=== PATIENT | male | born 1950 | race Caucasian/White ===

== ENCOUNTER → 2016-09-17 | Outpatient (CLI) | payer OTHER ==
[~2016-09-17] VITALS: Ht 177.8 cm; Wt 122.9 kg
[~2016-09-17] MED LIST: ALBUTEROL INH INH; ALLEGRA-D 24 H1 EACH PO; AMBIENCR PO; ASMANEX0.135 G1 IH; ASPIRIN EC81 M1 PO; CARDIZEM CD180 MG PO; CARDIZEM PO; COMBIVENT INH; COUMADIN 5 MG TA5 M1 OR; COUMADIN 5 MG TA5 M1 PO; CRESTOR40 MG PO; CYMBALTA60 MG PO; DIGOXIN125 MCG PO; DOCUSATE SODIU100 MG PO; DOXYCYCLINE HY100 MG PO; FERROUS GLUCON240 MG PO; FERROUS GLUCON325 M4 PO; FUROSEMIDE 20 M20 MG PO; FUROSEMIDE 40 M40 MG; GLUCOPHAGE500 MG PO; GLUCOSAMINE &1 EACH PO; GLUCOTROL10 MG PO; GLYBURIDE 5 MG T5 M1 PO; GNP GLUCOSAMIN PO; HYDROCODON-ACE1 EACH PO; HYDROXYZINE HCL25 M1 PO; HYTRIN 5 M5 MG/1 CAP PO; HYTRIN10 MG PO; KEFLEX500 MG PO; LISINOPRIL10 MG PO; LISINOPRIL40 MG PO; LORAZEPAM 1 MG T1 M1 PO; METFORMIN HCL500 MG PO; METOCLOPRAMIDE10 MG PO; MOMETASONE FUROATE INH; NEURONTIN 300300 M1 PO; OMEGA 3-6-9 CO1 EACH PO; OMEPRAZOLE 20 M20 M1 PO; OXYBUTYNIN 5 MG5 M1 PO; OXYCODONE-ACET1 EAC2 PO; OXYCONTIN PO; OXYCONTIN20 M1 PO; OXYCONTIN20 MG PO; OXYTROL3.9 MG/PAT TRANSDERM; Oxycontin; Oxycontin PO; PACERONE 200 M200 M1 PO; PERCOCET 10-321 EACH PO; PLAVIX 75 MG TA75 M1 PO; PLAVIX 75 MG TA75 MG PO; PREPARATION H26 GM; PRILOSEC 20 MG20 MG PO; PRINIVIL40 MG PO; PROSCAR 5MG TABL5 M1 PO; SANCTURA XR60 M2 PO; SILVADENE20 GM TP; SONATA10 MG PO; SPIRIVA INH; SUPER OMEGA-31000 MG PO; SYMBICORT160 MCG/4. INH; TOPROL XL25 MG PO; TRIAM60; TYLENOL325 MG PO; UNICOMPLEX M TA1 TA1 PO; VESICARE10 M1 PO; VITAMIN B COMP1 EAC7 PO; VITAMIN D32000 UNI1 PO; VITAMIN D32000 UNIT; VITAMINC500 PO; ZANTAC 150MG T150 M1 PO; ZINC CHELATE50 MG PO; ZYRTEC 10 MG TA10 MG PO; [UNRECOGNIZED DRUG - REMARK]; oxycontin PO
--- NOTE | ~2016-09-17 | HPC ---
[facility] [place] [address] PAIN MANAGEMENT CONSULTATION Name: RAHEEM SANDOVAL [facility] [id number] Admission: 09/17/16 Attend Phys: Raheem Gilbert MD Discharge: Date of : 46 Report #: [id number] THIS REPORT FOR: //name// CC: Jose Stoevrlaura Mariontree DATE OF SERVICE: 09/17/2016 Followup visit for chronic intractable back pain, now with radiculopathy, right hip, into the foot and ankle. The patient returns to pain clinic today in followup. He is in his wheelchair. He is continuing to lose weight down a total of 30 pounds. He is getting around a little bit better, except for increasing onset of radicular pain into the right leg. Pain begins in the hip, follows the lateral aspect of the leg down through the thigh into the calf and into the L5-S1 distribution. He describes his pain as severe, 10/10 at times with his ability to get up and ambulate the short distances that he does outside of his wheelchair. He continues to deal with COPD and sleep apnea using a CPAP at night with oxygen. He has type 2 diabetes, gastroesophageal reflux disease, morbid obesity and peripheral vasculopathy. He has been treated with stents for femoral artery stenosis on the right. He has, in addition, multi-joint arthropathies and arthritis including pain in nearly every joint of his body. He has had knee injections on frequent occasions and arthroscopies. He has no artificial joints to this stage, mostly because he is not a candidate due to his poor health. CURRENT MEDICATIONS: Oxycodone 10/325 three times daily, gabapentin 300 mg t.i.d. and OxyContin 20 mg b.i.d. (Total MME is 90 mg per day). All other medications are listed on the electronic medical record and confirmed and reconciled. ALLERGIES: None. PHYSICAL EXAMINATION: GENERAL: This is a very pleasant gentleman, alert and oriented. He is in a wheelchair, but he is able to move from sitting to standing position, in fact, get up and on to the bed, without significant difficulty. He is morbidly obese with a BMI of 38.9. VITAL SIGNS: Blood pressure is 147/71, heart rate is 72, respirations are 22 and room air oxygen saturation is 99%. HEENT: Normal. CHEST: Reveals decreased breath sounds bilaterally throughout. CARDIAC: Rhythm is irregular. ABDOMEN: Examination of the abdomen is soft. [address] [address] PAIN MANAGEMENT CONSULTATION Name: RAHEEM SANDOVAL Room #: REG [facility]#: [id number] Admission: 09/17/16 Attend Phys: Raheem Gilbert MD Discharge: Date of : 46 Report #: [id number] EXTREMITIES: Examination of the extremities reveals peripheral edema and multiple bruises in the upper and lower extremities. Straight leg raising is markedly positive on the right, which reproduces an L5-S1 discomfort. He has discomfort and tenderness in multiple joints including bilateral knees, which have crepitus and some slight effusion as well as shoulders. IMPRESSION: 1. Chronic intractable back pain with spondylosis and lumbar radiculopathy. 2. Osteoarthritis including knees, hips and shoulders. 3. Chronic obstructive pulmonary disease. 4. Hypertension. 5. Morbid obesity with continuing weight loss. 6. Type 2 diabetes. 7. Management of high-risk medication. PLAN: I renewed his medication under the terms of our opioid agreement with instructions on safeguarding all medications. Urine drug screen was reviewed from 6 months ago and this demonstrated no surprises in his medication, only medications present were those provided through our clinic. PROCEDURE: Epidural steroid injection, right paramedian, L5-S1, under fluoroscopic guidance. PROCEDURE NOTE: He was taken to the fluoroscopic suite for treatment, placed prone and skin prepped with ChloraPrep. Skin anesthetized over the L5-S1 interspace. Using triplanar fluoroscopic views, I advanced the needle into the epidural space with loss of resistance technique. There was no blood or CSF aspirated. A 1 mL of Omnipaque was injected with good spread of dye observed in the epidural space. This was then followed by 3 mL of 0.5% lidocaine mixed with 80 mg of triamcinolone. He tolerated the procedure well and was observed for 45 minutes and discharged. Followup visit is planned in the pain clinic in 3 months for medications, sooner if necessary. <ELECTRONICALLY SIGNED> By: Raheem Gilbert MD 09/18/16 1329 1311 1420 Raheem Gilbert MD /nt
[2016-09-17 09:39] LABS: PROTIME 10.6 Seconds (9.3-11.4)
[2016-09-17 10:01] VITALS: BP 120/64
== END | disposition home or self-care (01) ==
LOC: PAIN 07:07
PROVIDERS: Anesthesiology Pain Medicine
DX: M47.896 Other spondylosis, lumbar region (principal); G89.29 Other chronic pain; M19.90 Unspecified osteoarthritis, unspecified site; I10 Essential (primary) hypertension; E66.01 Morbid (severe) obesity due to excess calories; E11.9 Type 2 diabetes mellitus without complications; J44.9 Chronic obstructive pulmonary disease, unspecified; F17.210 Nicotine dependence, cigarettes, uncomplicated; Z68.38 Body mass index [BMI] 38.0-38.9, adult

== ENCOUNTER 2016-10-08 20:24 | Inpatient (IN) | payer OTHER ==
[~2016-10-08] VITALS: Ht 177.8 cm; Wt 121.9 kg
--- NOTE | ~2016-10-08 | 2DMMODE ---
[facility] [place] [address] 2 D/M-MODE ECHOCARDIOGRAM Name: RAHEEM SANDOVAL Room #: 426-P [facility] IN .R.#: [id number] Admission: 10/08/16 Attend Phys: Hanna Smith MD Discharge: Date of : 46 Date of Service: 10/09/16 1018 Report #: [id number] THIS REPORT FOR: //name// Transthoracic Echocardiography Ordering physician: Thuy Encarnacion Stephanie B. Newbanks, physician: Thuy Wetzel Deputy Sheriff K9 Handler: Tamara Seo Indications/History: Elevated BNP, rule out heart failure. Hx: Afib HTN, HLP, COPD, DM, PVD BP: 123 / HR: 85bpm Height: 70in Weight: 269.4lb 71 Study data: M-mode, complete 2D, complete spectral Doppler, and color Doppler. Location: Bedside. Routine. Image quality was fair. The study was technically limited due to body habitus. The parasternal window was low, thus no M-mode measurements were recorded. 2D measurements Normal Normal LVID ED 55.2mm 36-57 IVS ED 12.6mm 6-11 LVID ES 37.4mm 23-40 LVPW ED 13.1mm 6-11 LA volume 20ml/m2 16-28 AoRoot diam 37.1mm 21-37 index ED LVOT diameter 18-23 Findings: Left ventricle: The cavity size was normal. Wall thickness was increased in a pattern of mild LVH. Systolic function was normal. The estimated ejection fraction was in the range of 55% to 60%. Wall motion was normal. Right ventricle: Not well visualized but appears normal in size and function. Right atrium: The atrium was normal in size. Left atrium: The atrium was normal in size. Volume index: 20ml/m2 (S). [facility] [address] [place] [address] 2 D/M-MODE ECHOCARDIOGRAM Name: RAHEEM SANDOVAL Room #: 426-P [facility] IN Renee#: [id number] Admission: 10/08/16 Attend Phys: Hanna Smith MD Discharge: Date of : 46 Date of Service: 10/09/16 1018 Report #: [id number] Aortic valve: Poorly visualized. Mildly sclerotic leaflets. Doppler: There was no stenosis. No regurgitation. Peak velocity: 171.5cm/s (S). Peak gradient: 11.8mm Hg (S). Mitral valve: Moderately calcified annulus. Doppler: There was no evidence for stenosis. Mild regurgitation. Peak E-wave velocity: 66.9cm/s. Peak A-wave velocity: 92.1cm/s. Tricuspid valve: Structurally normal valve. Doppler: There was no evidence for stenosis. Trivial regurgitation. Regurgitant peak velocity: 194.8cm/s. Peak RV-RA gradient: 15mm Hg (S). Pulmonic valve: Poorly visualized. Pericardium: Apericardial fat pad was noted. There was no pericardial effusion. Aorta: Aortic root: The aortic root was normal in size. Pulmonary artery: Pressure could not be reliably determined due to minimal or absent tricuspid insufficiency jet, but pulmonary hypertension was not suggested. Diastolic function: Doppler parameters are consistent with abnormal left ventricular relaxation (grade 1 diastolic dysfunction). Systemic veins: Inferior vena cava: The vessel was normal in size; the respirophasic diameter changes were in the normal range (= 50%). Conclusions Limited echo study. 1. Left ventricle: Systolic function was normal. The estimated ejection fraction was in the range of 55% to 60%. Wall motion was normal. Doppler parameters are consistent with abnormal left ventricular relaxation (grade 1 diastolic dysfunction). 2. Aortic valve: Mildly sclerotic leaflets. There was no stenosis. No regurgitation. 3. Mitral valve: Moderately calcified annulus. Mild regurgitation. 4. Pericardium, extracardiac: There was no pericardial effusion. <ELECTRONICALLY SIGNED> By: Vel Gudino MD, [facility] 10/09/161834 1018 34 Vel Gudino MD, [facility] /jenifer
--- NOTE | ~2016-10-08 | HC ---
[facility] [place] [address] CONSULTATION Name: RAHEEM SANDOVAL Room #: 426-P [facility] IN M.R.#: [id number] Admission: 10/08/16 Attend Phys: Hanna Smith MD Discharge: 10/10/16 Date of : 46 Report #: [id number] THIS REPORT FOR: //name// CC: Hanna Cervantes DATE OF SERVICE: 10/09/[address] Escobar, physician loan officer assistant in collaboration with Dr. Tito Harry dictating a consultation note on the patient. ADMITTING PHYSICIAN: Dr. Hanna Smith. REASON FOR CONSULTATION: For evaluation and recommendation regarding wound care. CHIEF COMPLAINT: Cellulitis, bilateral lower extremities. PRIMARY CARE PHYSICIAN: Dr. Divine Cervantes. HISTORY OF PRESENT ILLNESS: The patient is a very pleasant 66-year-old male who has been admitted for bilateral lower extremity cellulitis and weakness. The patient has known peripheral vascular disease with hemosiderin staining to bilateral lower extremities. He does state that he has intermittent swelling and has had swelling for approximately 10-14 days. It did begin to weep and then over the past 2-3 days, he developed open ulcerations to the anterior aspect of bilateral lower extremities. The patient states that he has fallen twice in the past couple of weeks secondary to leg weakness. He does have a history of type 2 diabetes and a history of myocardial infarction, less than one year ago. PAST MEDICAL HISTORY: Significant for chronic atrial fibrillation, peripheral vascular disease, COPD, type 2 diabetes, GERD, hyperlipidemia, osteoarthritis, chronic pain, chronic kidney disease stage 3, depression, sleep apnea and hypertension. PAST SURGICAL HISTORY: He has had an SFA stent and left femoral artery stent, vasectomy, colon resection and bilateral knee scope. SOCIAL HISTORY: The patient quit smoking 5 years ago. He now currently uses e-smoke. The patient is a . He typically ambulates with a cane. He is retired, lives alone. FAMILY HISTORY: Nonpertinent to current wound diagnosis. ALLERGIES: No known drug allergies. [address] [address] CONSULTATION Name: JAIMERAHEEM VESTA Room #: 426-P [facility] IN M.R.#: [id number] Admission: 10/08/16 Attend Phys: Hanna Smith MD Discharge: 10/10/16 Date of : 46 Report #: [id number] MEDICATIONS: Oxycodone, metoprolol, multivitamin, Tylenol, triamcinolone, albuterol, amiodarone, ranitidine, rosuvastatin, prazosin, hydrocortisone, iron, glipizide, , Symbicort, Spiriva, Cymbalta, docusate, omeprazole, warfarin. The patient was supratherapeutic on admission of 5.8. Vitamin B complex, vitamin C, zinc, aspirin, VESIcare, oxybutynin, metformin and Neurontin. The patient is on ceftriaxone and zinc. REVIEW OF SYSTEMS: The patient denies recent sick contacts, fevers or chills. He denies headache, chest pain, shortness of breath, palpitation. Denies abdominal pain, nausea, vomiting or change in bowel . PHYSICAL EXAMINATION: GENERAL: He is alert and oriented, in no acute apparent distress. VITAL SIGNS: Temperature 36.8, pulse 96, respirations 18, blood pressure 123/71, pulse ox 93. HEENT: Head atraumatic, normocephalic. Pupils are round. Sclerae white. Mucous membranes dry. NECK: Supple. Negative for JVD. HEART: Regular rate and rhythm. LUNGS: Clear. ABDOMEN: Soft, nontender. NEUROLOGIC: Cranial nerves 2-12 are intact. EXTREMITIES: He does have mild edema to lower extremities, no pitting edema. He has an open ulceration to the right lower extremity with full thickness, moderate serosanguineous drainage. There is approximately 30% slough to the wound bed, remaining percentage is granulation. Warmth and erythema noted. He does have diminished dorsalis pedis pulse to the right lower extremity. Exam of the left lower extremity, there is an eschar dry blood to the left anterior lower extremity and small area of open granulating tissue present. Minimal drainage, minimal warmth and erythema to the surrounding area. There is 2+ dorsalis pedis pulse to the left lower extremity. NEUROLOGIC: Cranial nerves 2-12 are intact. Negative peripheral neuropathy. LABORATORY DATA: White blood cell 9.5, hemoglobin 7.5, albumin 2.8. Troponin 0.04. BUN 21, creatinine 1.3. UA was positive for 3+ protein, 1+ ketones, 3+ blood, 2+ leukocyte esterase and bacteria 1-9. The patient then carried out. ASSESSMENT: 1. Bilateral lower extremity cellulitis. 2. Weakness. 3. Supratherapeutic INR. 4. Diabetes type 2. PLAN: Local wound care. We will add Silvadene to bilateral lower extremities covered with Xeroform, ABD, Kerlix and Shane from toes to knee changing b.i.d. [address] [address] CONSULTATION Name: RAHEEM SANDOVAL Room #: 426-P [facility] IN M.R.#: [id number] Admission: 10/08/16 Attend Phys: Hanna Smith MD Discharge: 10/10/16 Date of : 46 Report #: [id number] Continue IV antibiotic and continue p.o. protein per renal diet. Continue PT, OT for strengthening, continue to follow. We will perform arterial ultrasound to assess bilateral lower extremity blood flow. By: 09 18 CORNELIUS Arevalo /byron
--- NOTE | ~2016-10-08 | EKG ---
[place] [address] [facility] [place] [employer] [address] ELECTROCARDIOGRAM REPORT Name: RAHEEM SANDOVAL Room #: 426-P ADM IN M.R.#: [id number] Admission: 10/08/16 Attend Phys: Hanna Smith MD Discharge: Date of : 46 Report #: [id number] THIS REPORT FOR: //name// [facility] ED Test Date: 2016-10-08 Test Time: 21:34:15 Pat Name: RAHEEM SANDOVAL Department: Room: 426 Gender: M Manager Sas: kaden : 1950 Requested By: Greg Silveira Order Number: [id number] MD: Vel Gudino Measurements Intervals [place] Rate: 71 P: 0 AK: 182 QRS: -4 QRSD: 104 T: 206 QT: 361 QTc: 393 Interpretive Statements Possibly Sinus rhythm, artifact obscures assessment Repol abnrm suggests ischemia, diffuse leads Compared to ECG 03/23/2016 21:17:12 No significant changes Electronically Signed On 10-10-2016 13:30:34 MARKING DEVICES ASSEMBLER by Vel Gudino [email or web address] <ELECTRONICALLY SIGNED> By: Vel Gudino MD, [facility] 10/10/16 1330 33 33 Vel Gudino MD, [facility] /EPI
[~2016-10-08 20:24] MED LIST changes: -SILVADENE20 GM TP
[2016-10-08 20:26] VITALS: BP 132/60
[2016-10-08 21:15] LABS: ABSOLUTE NEUTROPHILS 5.1 thou/uL (1.4-8.2); BASOPHILS 0.5 % (0.0-2.0); EOSINOPHILS 1.1 % (0.0-3.0); HEMATOCRIT 31.8 % (42.0-52.0); HEMOGLOBIN 10.8 gm/dL (14.0-18.0); LYMPHOCYTES 26.6 % (24.0-44.0); MCH 31.1 pg (26.0-34.0); MCHC 33.9 % (28.0-37.0); MCV 91.8 fL (80.0-100.0); MONOCYTES 9.1 % (1.0-8.0); PLATELET COUNT 259 thou/uL (150-400); POLYS 62.7 % (36.0-66.0); RBC 3.46 mil/uL (4.50-6.00); RDW 14.5 % (10.5-14.5); WBC 8.1 thou/uL (4.0-11.0)
[2016-10-08 21:22] LABS: MANUAL DIFF NO
[2016-10-08 21:27] LABS: ANION GAP 7 mmol/L (7-16); BUN 26 mg/dL (7-18); CALCIUM 8.2 mg/dL (8.5-10.1); CHLORIDE 102 mmol/L (98-107); CO2 28 mmol/L (21-32); CREATININE 1.5 mg/dL (0.6-1.3); GLUCOSE 82 mg/dL (70-99); POTASSIUM 4.4 mmol/L (3.5-5.1); SODIUM 137 mmol/L (136-145)
[2016-10-08 21:33] LABS: APTT 72.5 Seconds (24.5-32.8); PROTIME 60.2 Seconds (9.3-11.4)
[2016-10-08 21:34] LABS: INR 5.8
[2016-10-08 21:41] LABS: ALBUMIN 2.8 g/dL (3.4-5.0); ALKALINE PHOSPHATASE 81 U/L (46-116); NT-PRO BRAIN NAT PEPTIDE 1006 pg/mL (<300); SGOT 40 U/L (15-37); SGPT 34 U/L (30-65); TOTAL BILIRUBIN 0.4 mg/dL (<0.1-1.0); TOTAL PROTEIN 6.2 g/dL (6.4-8.2); TROPONIN-I < 0.04 ng/mL (<0.04-0.07)
[2016-10-09 00:06] LABS: URINE BILIRUBIN NEGATIVE (Negative); URINE BLOOD 3+ (Negative); URINE COLOR RED; URINE GLUCOSE-RANDOM* NEGATIVE (Negative); URINE KETONES 1+ (Negative); URINE NITRITE POSITIVE (Negative); URINE PROTEIN (DIPSTICK) 3+ (Negative)
[2016-10-09 00:09] VITALS: BP 126/61
[2016-10-09 00:21] VITALS: BP 150/70
[2016-10-09 00:26] LABS: AMP/METHAMP Negative (Negative); BARBITURATES Negative (Negative); BENZODIAZEPINES Negative (Negative); COCAINE Negative (Negative); METHADONE Negative (Negative); OPIATES POSITIVE (Negative); PCP Negative (Negative); THC Negative (Negative)
[2016-10-09 00:35] LABS: CASTS None Seen /LPF (None Seen); SQUAMOUS None Seen /LPF (0-3)
[2016-10-09 00:36] LABS: BACTERIA 1-9 Few /HPF (None Seen); CRYSTALS None Seen /LPF (None Seen); HYALINE CASTS 0-3 Few /LPF (None Seen); URINE RBC >20 Many /HPF (0-2)
[2016-10-09 04:00] VITALS: BP 174/83
[2016-10-09 05:16] LABS: HEMATOCRIT 35.1 % (42.0-52.0); HEMOGLOBIN 11.5 gm/dL (14.0-18.0); MCH 30.8 pg (26.0-34.0); MCHC 32.9 % (28.0-37.0); MCV 93.4 fL (80.0-100.0); RBC 3.75 mil/uL (4.50-6.00); RDW 14.5 % (10.5-14.5); WBC 9.5 thou/uL (4.0-11.0)
[2016-10-09 05:29] LABS: CREATININE 1.3 mg/dL (0.6-1.3)
[2016-10-09 05:30] LABS: PROTIME 58.6 Seconds (9.3-11.4)
[2016-10-09 05:38] LABS: INR 5.6
[2016-10-09 08:27] VITALS: BP 123/71
[2016-10-09 16:11] LABS: TSH 1.31 uIU/mL (0.450-4.500)
[2016-10-09 17:37] VITALS: BP 119/80
[2016-10-09 20:00] VITALS: BP 147/67
[2016-10-09 21:09] LABS: GLYCOHEMOGLOBIN (HGB A1C) 5.8 % (4.8-5.6)
[2016-10-10 04:55] VITALS: BP 126/54
[2016-10-10 08:09] VITALS: BP 159/86
[2016-10-10] MEDS ORDERED: KEFLEX500 MG PO (11:12)
[2016-10-10 11:46] LABS: PROTIME 20.6 Seconds (9.3-11.4)
[2016-10-10] MEDS ORDERED: SILVADENE20 GM TP (12:25)
[2016-10-10 12:29] VITALS: BP 159/86
[2016-10-10 12:33] VITALS: BP 159/86
== END 2016-10-10 14:15 | disposition home health service (06) | DRG 602 ==
LOC: ER 20:24 → EROBS 22:43 → 4E 22:43
PROVIDERS: Emergency Medicine; Family Medicine; Nurse Practitioner
DX: L03.115 Cellulitis of right lower limb (principal); N17.0 Acute kidney failure with tubular necrosis; N39.0 Urinary tract infection, site not specified; J44.9 Chronic obstructive pulmonary disease, unspecified; D64.9 Anemia, unspecified; I48.2 Chronic atrial fibrillation; K21.9 Gastro-esophageal reflux disease without esophagitis; E78.5 Hyperlipidemia, unspecified; G89.29 Other chronic pain; E11.22 Type 2 diabetes mellitus with diabetic chronic kidney disease; I12.9 Hypertensive chronic kidney disease with stage 1 through stage 4 chronic kidney disease, or unspecified chronic kidney disease; N18.3 Chronic kidney disease, stage 3 (moderate); F32.9 Major depressive disorder, single episode, unspecified; Z60.2 Problems related to living alone; G47.33 Obstructive sleep apnea (adult) (pediatric); L03.116 Cellulitis of left lower limb; E66.9 Obesity, unspecified; E11.51 Type 2 diabetes mellitus with diabetic peripheral angiopathy without gangrene; E78.00 Pure hypercholesterolemia, unspecified; Z98.42 Cataract extraction status, left eye; Z98.41 Cataract extraction status, right eye; Z98.890 Other specified postprocedural states; Z79.01 Long term (current) use of anticoagulants; Z90.49 Acquired absence of other specified parts of digestive tract; Z98.52 Vasectomy status; Z79.899 Other long term (current) drug therapy; Z79.82 Long term (current) use of aspirin; I25.2 Old myocardial infarction; Z87.891 Personal history of nicotine dependence; Z82.49 Family history of ischemic heart disease and other diseases of the circulatory system; Z68.38 Body mass index [BMI] 38.0-38.9, adult; M19.90 Unspecified osteoarthritis, unspecified site
CPT/HCPCS: 10183

== ENCOUNTER → 2016-12-28 | Outpatient (CLI) | payer OTHER ==
[~2016-12-28] VITALS: Ht 177.8 cm; Wt 118.8 kg
[~2016-12-28] MED LIST changes: +SILVADENE20 GM TP
--- NOTE | ~2016-12-28 | HPC ---
[facility] [place] [address] PAIN MANAGEMENT CONSULTATION Name: RAHEEM SANDOVAL Room #: REG CL Renee#: [id number] Admission: 12/28/16 Attend Phys: Raheem Gilbert MD Discharge: Date of : 46 Report #: [id number] THIS REPORT FOR: //name// CC: Raheem Deckerie Billy DATE OF SERVICE: 12/28/2016 Followup visit for chronic back pain with radiculopathy. The patient returns to pain clinic today in followup. He is doing well. The last epidural injection I provided from him was very helpful at L5-S1. He does not feel that he needs another injection. He had an improvement in his social setting. His daughter from [place] has moved back and his living with him. Although he is paying all the bills he is very happy to have her as surgery aide. It has been a few years since his , Isidra, passed. She was a patient of our clinic. He complains of pain today to 5/10, this is acceptable. This is exacerbated by walking, squatting and weather. He is in his motorized scooter most of the time when he is up. MEDICATIONS: Reviewed and reconciled from the electronic medical record. He is on a lot of medication. He takes them carefully with the use of his pill box and is I believe complaint. Opioid medication provided through our clinic is OxyContin 20 mg b.i.d. and oxycodone 10/325. He takes breakthrough pain medication infrequently. PHYSICAL EXAMINATION: He is pleasant, alert and oriented. He does not show any signs of overmedication. He is in electric wheelchair. Chest is clear and his breathing is easy. He has a vapor pen in his hand. Abdomen is soft, nontender. Legs are extremely weak with edema. IMPRESSION: 1. Chronic intractable pain with low back pain and radiculopathy that is predominant as well as osteoarthritis of the hips, knees and shoulders. 2. Chronic obstructive pulmonary disease. 3. Hypertension. 4. Morbid obesity. 5. diabetes. 6. History of atrial fibrillation. PLAN: I will continue his medication for pain under terms of our opioid agreement. He understands his responsibilities to safeguard his medications [address] [address] PAIN MANAGEMENT CONSULTATION Name: RAHEEM SANDOVAL Room #: REG [facility].#: [id number] Admission: 12/28/16 Attend Phys: Raheem Gilbert MD Discharge: Date of : 46 Report #: [id number] completely and receive medications from only one physician. Most recent urine drug screen was performed almost a year ago, was appropriate for all opioids medications provided from our pain clinic. Plan follow up in 3 months. By: [id number] Raheem Gilbert MD /nt
[2016-12-28 12:40] VITALS: BP 131/64
== END | disposition home or self-care (01) ==
LOC: PAIN 06:54
DX: G89.29 Other chronic pain (principal); J44.9 Chronic obstructive pulmonary disease, unspecified; I10 Essential (primary) hypertension; E66.01 Morbid (severe) obesity due to excess calories; I48.91 Unspecified atrial fibrillation; M54.10 Radiculopathy, site unspecified

== ENCOUNTER → 2017-06-24 | Outpatient (CLI) | payer OTHER ==
[~2017-06-24] VITALS: Ht 177.8 cm; Wt 121.6 kg
--- NOTE | ~2017-06-24 | HPC ---
[facility] [place] [address] PAIN MANAGEMENT CONSULTATION Name: RAHEEM SANDOVAL Room #: REG [facility] Renee#: [id number] Admission: 06/24/17 Attend Phys: Raheem Gilbert MD Discharge: Date of : 46 Report #: [id number] THIS REPORT FOR: //name// CC: Raheem Cervantes MD DATE OF SERVICE: 06/24/2017 Followup visit for chronic low back pain with radiculopathy. I last the patient in December. Much has gone on since I last saw him. We spent about 25 minutes today in his consultation discussing his changes. He was hospitalized for 2 weeks on and 2 separate occasions and spent 7 weeks in rehabilitation. He had sepsis and was admitted to [facility]. He has had a slow recovery and is doing better. This would account for the reason he has not been back for medication refills. He has numerous problems which were reviewed today. He had a partial colon resection in 2009 and has some ongoing abdominal pain. He has osteoarthritis in both knees, hips and back. His shoulders are also involved. He has COPD and history of atrial fibrillation with coronary artery disease. He is a type 2 diabetic and has morbid obesity. He has peripheral vascular disease as well. He is debilitated and uses a wheelchair. He has been living in his house by himself, but his daughter is moving from [place] following a divorce to live with him and it will be helpful in the house. MEDICATIONS: Reviewed and reconciled from the electronic medical record. This lengthy list will not be repeated here. Medications that I provide for his intractable pain are opioids under terms of an opioid agreement. I have renewed his OxyContin 20 mg b.i.d. and oxycodone 10/325 twice a day. This is a total of 60 oxycodone mg equal to 90 morphine mg equivalents right at the CDC guidelines. from 14 months ago, which is appropriate for medications provided. We have reviewed his opioid contract and his agreement. We have talked about the CDC guidelines and addiction issues in [place]. I believe these medications are important for the patient has multiple comorbidities. PHYSICAL EXAMINATION: Pleasant, alert and oriented, without any signs of overmedication. Blood pressure 119/55, heart rate 74, respirations 16. BMI is 38.5. We have discussed weight loss issues. IMPRESSION: 1. Chronic intractable pain related to osteoarthritis, degenerative spondylosis and radiculopathy. He has multiple joint osteoarthritis of the hips, knees and shoulders. Medication has been helpful in easing some of this discomfort. [address] [address] PAIN MANAGEMENT CONSULTATION Name: RAHEEM SANDOVAL Room #: REG CL Danelle.#: [id number] Admission: 06/24/17 Attend Phys: Raheem Gilbert MD Discharge: Date of : 46 Report #: [id number] 2. Chronic obstructive pulmonary disease. 3. Hypertension. 4. Morbid obesity. 5. Type 2 diabetes. 6. History of atrial fibrillation. 7. Recent sepsis with long hospital stay followed by rehabilitation. PLAN: To follow up in 3 months. By: [id number] Raheem Gilbert MD /nt
[2017-06-24 14:30] VITALS: BP 119/55
== END | disposition home or self-care (01) ==
LOC: PAIN 07:17
DX: M47.20 Other spondylosis with radiculopathy, site unspecified (principal); G89.29 Other chronic pain; M16.0 Bilateral primary osteoarthritis of hip; M17.0 Bilateral primary osteoarthritis of knee; M19.012 Primary osteoarthritis, left shoulder; M19.011 Primary osteoarthritis, right shoulder; Z68.38 Body mass index [BMI] 38.0-38.9, adult; J44.9 Chronic obstructive pulmonary disease, unspecified; E66.01 Morbid (severe) obesity due to excess calories; I10 Essential (primary) hypertension; E11.9 Type 2 diabetes mellitus without complications; I48.91 Unspecified atrial fibrillation; Z87.891 Personal history of nicotine dependence

== ENCOUNTER → 2017-12-27 | Outpatient (CLI) | payer OTHER ==
[~2017-12-27] VITALS: Ht 172.7 cm; Wt 108.9 kg
[~2017-12-27] MED LIST changes: +XARELTO10 MG PO
--- NOTE | ~2017-12-27 | HPC ---
[facility] [place] [address] PAIN MANAGEMENT CONSULTATION Name: RAHEEM SANDOVAL Room #: REG CL Renee#: [id number] Admission: 12/27/17 Attend Phys: Raheem Gilbert MD Discharge: Date of : 46 Report #: [id number] THIS REPORT FOR: //name// CC: Raheem Deckerie Billy DATE OF SERVICE: 12/27/2017 Followup visit for chronic low back pain, now with sacroiliac joint pain on the right. The patient returns to pain clinic today in followup. He would like to stop his OxyContin. I have agreed to do that today and we will provide him with oxycodone 10/325 three times daily. Last prescriptions I provided him were in June. He has not been using as much of the narcotic. Release date prescriptions were provided for 4 and 8 weeks. This will be a marked reduction in his prescribed MME. Total MME will now be 45. Today, he complains of pain in his right sacroiliac joint. He is in his scooter. He is able to walk, but has pain with standing and weightbearing. All the pain is localized over the sacroiliac joint with no radiating pain, no radiculopathy. PHYSICAL EXAMINATION AND PQRS REVIEW. GENERAL: He is morbidly obese with a BMI of 36. Pain intensity is 3/10 today with all localized in the sacroiliac joint for the most part. VITAL SIGNS: His blood pressure is 95/59, heart rate 78, respirations 22. CHEST: Reveals expiratory wheezing. CARDIAC: Rhythm is regular with no audible murmur. NEUROLOGIC: He is using a scooter and a cane and he is a fall risk and has fallen within the last 3 months. He remains on a blood thinner Xarelto. He has no history of hypertension. We reviewed his opioid agreement. Most notable physical finding today is localized tenderness in the right sacroiliac joint. He has pain lifting his leg up on to the examining bed and he has a positive DARIUSZ localizing tenderness in the right sacroiliac joint. The patient is also an everyday smoker, smoking e-cigarettes. He was counseled. IMPRESSION: Low back pain with sacroiliitis. RECOMMENDATION: Sacroiliac joint under fluoroscopic guidance and reduction of opioid medication. [address] [address] PAIN MANAGEMENT CONSULTATION Name: RAHEEM SANDOVAL [facility] [id number] Admission: 12/27/17 Attend Phys: Raheem Gilbert MD Discharge: Date of : 46 Report #: [id number] PROCEDURE: He was taken to the fluoroscopic suite, placed prone, skin prepped with ChloraPrep. Skin anesthetized over the sacroiliac joint on the right. 25-gauge needle was advanced into the capsule using a posterior inferior approach. After negative aspiration, I injected 1/4 mL of Omnipaque and good spread of dye was seen within the joint, demonstrating an arthrogram. It was followed then by 1 mL of 0.5% bupivacaine mixed with 40 mg triamcinolone. He tolerated the procedure well and pain was reduced at discharge. Medications provided for 3 months as above. By: [id number] Raheem Gilbert MD /nt
[2017-12-27 13:52] VITALS: BP 95/59
== END | disposition home or self-care (01) ==
LOC: PAIN 12-13 07:21
DX: M53.3 Sacrococcygeal disorders, not elsewhere classified (principal); E66.01 Morbid (severe) obesity due to excess calories; Z68.36 Body mass index [BMI] 36.0-36.9, adult; F17.210 Nicotine dependence, cigarettes, uncomplicated; M54.5 Low back pain